=== PATIENT | female | born 1995 | race Caucasian/White ===

== ENCOUNTER 2017-03-17 07:21 | Day surgery (SDC) | payer OTHER ==
[~2017-03-17] VITALS: Ht 160 cm; Wt 90.3 kg
[~2017-03-17 07:21] MED LIST: ALENDRONATE70 MG PO
[2017-03-17 09:10] VITALS: BP 115/72
== END 2017-03-17 09:20 | disposition home or self-care (01) | DRG 552 ==
LOC: ORM 07:21
PROVIDERS: ATTEND Anesthesiology Pain Medicine
PROC: 3E0T3BZ Introduction of Anesthetic Agent into Peripheral Nerves and Plexi, Percutaneous Approach (ICD-10-PCS; principal; 2017-03-17)
PROC: 3E0T33Z Introduction of Anti-inflammatory into Peripheral Nerves and Plexi, Percutaneous Approach (ICD-10-PCS; 2017-03-17)
DX: M54.6 Pain in thoracic spine (principal); S22.050A Wedge compression fracture of T5-T6 vertebra, initial encounter for closed fracture; M40.294 Other kyphosis, thoracic region